=== PATIENT | male | born 1950 | race Caucasian/White ===

== ENCOUNTER → 2018-06-02 | Outpatient (CLI) | payer MEDICARE ==
[2018-06-02 07:38] LABS: Blood Urea Nitrogen 18 mg/dL (9-20)
--- NOTE | 2018-06-02 10:00 | CT ---
EXAMINATION TYPE: CT abdomen pelvis wo/w con DATE OF EXAM: 06/02/2018 COMPARISON: None HISTORY: Diverticulosis, Constipation and Bloating CT DLP: 3172.50 mGycm CONTRAST: CT scan of the abdomen and pelvis is performed with Oral Contrast and without and with IV Contrast, p atient injected with 100 ml mL of Isovue 300. FINDINGS: LUNG BASES-: Basilar dependent atelectasis. Pulmonary nodule noted measuring 4 mm left lower lobe and 3 mm right lower lobe. Consider dedicated CT of the chest for further evaluation. LIVER/GB: No calcified gallstones. No space occupying hepatic lesion. Biliary tree is of normal ca liber. There is evidence of hepatic steatosis. PANCREAS: No inflammation. No distinct mass. SPLEEN: No splenic enlargement. No lesion seen. ADRENALS: No nodule. No thickening. KIDNEYS/BLADDER: Solid mass left kidney compatible with renal cell carcinoma until proven otherwise m id to lower pole measuring 7.2 x 7.4 x 6.7 cm. Indeterminate lesion lower pole right kidney is exophy tic and measures 4.0 x 2.6 cm and demonstrates Hounsfield unit measurement of approximately 40 both b efore and after the administration of contrast. Additional left cystic lesions noted bilaterally have a simple appearance. Urinary bladder is poorly distended with wall thickening noted. No hydronephros is or nephrolithiasis. BOWEL: Normal appendix. Normal bowel caliber. No inflammation. Sigmoid diverticulosis without diver ticulitis. GENITAL ORGANS: Prostate gland calcifications noted. LYMPH NODES: No greater than 1cm abdominal or pelvic lymph nodes are appreciated. AORTA: No significant abnormality. OSSEOUS STRUCTURES: Severe multilevel degenerative disc disease. Grade 1 anterolisthesis L5 on S1. OTHER: No significant additional abnormality is seen. IMPRESSION: 1. Solid mass left kidney felt to reflect renal cell carcinoma until proven otherwise. 2. Indeterminate lesion lower pole right kidney. 3. Pulmonary nodules may reflect metastatic disease. 4. Fatty liver. Recommendation: consult. Findings were discussed with ordering physician via telephone on June 02, 2018 at approximately 10 :00 AM
== END ==
LOC: RADCTMAIN 06:55
PROVIDERS: ATTEND Family Medicine
DX: N28.89 Other specified disorders of kidney and ureter (principal); K76.0 Fatty (change of) liver, not elsewhere classified
CPT/HCPCS: 82565; 84520; 74178; 36415; Q9967

== ENCOUNTER → 2018-06-05 | Outpatient (CLI) | payer MEDICARE ==
[2018-06-05 11:25] LABS: Blood Urea Nitrogen 18 mg/dL (9-20)
--- NOTE | 2018-06-05 12:50 | CT ---
EXAMINATION TYPE: CT chest w con DATE OF EXAM: 06/05/2018 COMPARISON: CT abdomen pelvis 06/02/2018 HISTORY: Pulmonary nodule, renal mass CT DLP: 653 mGycm Automated exposure control for dose reduction was used. CONTRAST: CT scan of the chest is performed with IV Contrast, patient injected with 100 ml mL of Isovue 300. FINDINGS: LUNGS: Soft tissue nodules in the left lower lobe measures approximately 5 mm in greatest dimension o n axial image 43, bandlike area of increased attenuation is present in the left lung base reflecting atelectasis or scar, some dependent atelectatic changes are present bilaterally. Subpleural triangula r opacity measures only 3 mm in the right lower lobe on axial image 39. Emphysematous changes are pre sent within the lungs. No endobronchial lesion, pleural pericardial effusion. MEDIASTINUM: There are no greater than 1 cm hilar or mediastinal lymph nodes. No pericardial effusi on is seen. AORTA: Ascending aorta measures 4.3 cm axial image 35. Atheromatous changes are present within the a joe, proximal descending aorta measures 2.9 cm. OTHER: There are coronary artery calcifications present. Suspect small hiatal hernia. Liver shows lo w attenuation as on prior.. IMPRESSION: Indeterminate pulmonary nodules. Aortic aneurysm, follow-up recommended. Coronary artery disease. Additional findings above.
== END | disposition home or self-care (01) ==
LOC: RADCTMAIN 10:41
PROVIDERS: ATTEND Urology
DX: J43.9 Emphysema, unspecified (principal); I71.2 Thoracic aortic aneurysm, without rupture; I25.10 Atherosclerotic heart disease of native coronary artery without angina pectoris
CPT/HCPCS: 82565; 84520; 71260; 36415; Q9967

== ENCOUNTER 2018-06-09 19:59 | Emergency (ER) | payer MEDICARE ==
[2018-06-09 20:15] VITALS: RESP 18; TEMP 98.1
[2018-06-09] MEDS ORDERED: SODIUM CHLORIDE 0.9% 1,000 ML IV ONE (21:36)
--- NOTE | 2018-06-09 21:48 | ED ---
Abdominal Pain HPI - General Source: patient, RN notes reviewed Mode of arrival: ambulatory Limitations: no limitations <Serjio Gomez - Last Filed: 06/10/18 01:45> <Chelsey Yoon - Last Filed: 06/10/18 02:54> - General Chief Complaint: Abdominal Pain Stated Complaint: Abd discomfort Time Seen by Provider: 06/09/18 21:04 - History of Present Illness Initial Comments: 67-year-old male presents emergency Department chief complaint abdominal pain, bloating and shortness of breath. Patient states that he's been having these symptoms on and off for last few months states it worsened tonight. Patient states that he recently found out that he has a left renal mass consistent with renal carcinoma. Patient did have recent CT of his chest, abdomen and pelvis. He does not know the complete results of this. Patient denies any chest pain but states he feels short of breath when he lays down denies any leg swelling, leg pain. Patient states she's also had decreased urine output though he states he has not been drinking as much because he becomes bloated and has abdominal discomfort when he does. Patient denies fever, chills. Patient denies any trauma to his abdomen. Patient had prior hernia repair by Dr. henriquez. (Serjio Gomez) - Related Data Home Medications Medication Instructions Recorded Confirmed Enalapril [Vasotec] 20 mg PO DAILY 06/09/18 06/09/18 Hydrochlorothiazide [Hydrodiuril] 25 mg PO DAILY 06/09/18 06/09/18 Simvastatin 40 mg PO HS 06/09/18 06/09/18 Allergies Allergy/AdvReac Type Severity Reaction Status Date / Time No Known Allergies Allergy Verified 06/09/18 21:23 Review of Systems ROS Other: All systems not noted in ROS Statement are negative. <Serjio Gomez - Last Filed: 06/10/18 01:45> ROS Other: All systems not noted in ROS Statement are negative. <Chelsey Yoon - Last Filed: 06/10/18 02:54> ROS Statement: Those systems with pertinent positive or pertinent negative responses have been documented in the HPI. Past Medical History Past Medical History: Hyperlipidemia, Hypertension Additional Past Medical History / Comment(s): mass to left kidney History of Any Multi-Drug Resistant Organisms: None Reported Past Surgical History: Hernia Repair Additional Past Surgical History / Comment(s): TURP Past Psychological History: No Psychological Hx Reported Smoking Status: Never smoker Past Alcohol Use History: Occasional Past Drug Use History: None Reported <Serjio Gomez - Last Filed: 06/10/18 01:45> General Exam Limitations: no limitations General appearance: alert, in no apparent distress Head exam: Present: atraumatic, normocephalic, normal inspection Neck exam: Present: normal inspection. Absent: tenderness, meningismus, lymphadenopathy Respiratory exam: Present: normal lung sounds bilaterally. Absent: respiratory distress, wheezes, rales, rhonchi, stridor Cardiovascular Exam: Present: regular rate, normal rhythm, normal heart sounds. Absent: systolic murmur, diastolic murmur, rubs, gallop, clicks GI/Abdominal exam: Present: soft, normal bowel sounds. Absent: distended, tenderness, guarding, rebound, rigid Back exam: Absent: CVA tenderness (R), CVA tenderness (L) Skin exam: Present: warm, dry, intact, normal color. Absent: rash <Serjio Gomez - Last Filed: 06/10/18 01:45> Vital Signs 06/09/18 06/09/18 06/10/18 20:08 23:15 01:26 Temperature 98.1 F Pulse Rate 46 L 74 71 Respiratory 18 18 18 Rate Blood Pressure 168/81 141/85 140/77 O2 Sat by Pulse 95 96 95 Oximetry Medical Decision Making - Lab Data Result diagrams: 06/09/18 21:57 06/09/18 21:57 <Serjio Gomez - Last Filed: 06/10/18 01:45> - Lab Data Result diagrams: 06/09/18 21:57 06/09/18 21:57 <Chelsey Yoon - Last Filed: 06/10/18 02:54> - Medical Decision Making 67-year-old male present emergency apartment for abdominal pain and bloating. Patient had extensive workup including labs, x-ray, EKG and chest x-ray and CT of the chest secondary shortness of breath. Patient's symptoms have all passed at this time. Patient feels comfortable being discharged. He doesn't follow up with Dr. Bernard for colonoscopy and follow-up with urology for his renal cell carcinoma. Him is updated on results and comfortable plan of discharge. (Serjio Gomez) I personally saw and examined the patient. I reviewed and agree with the mid- level provider findings including all diagnostic interpretations and treatment plans as written (Chelsey Yoon) - Lab Data Lab Results 06/09/18 06/09/18 06/09/18 Range/Units 21:57 21:57 21:57 WBC 7.0 (3.8-10.6) k/uL RBC 4.77 (4.30-5.90) m/uL Hgb 15.1 (13.0-17.5) gm/dL Hct 43.9 (39.0-53.0) % MCV 92.1 (80.0-100.0) fL MCH 31.7 (25.0-35.0) pg MCHC 34.4 (31.0-37.0) g/dL RDW 13.3 (11.5-15.5) % Plt Count 175 (150-450) k/uL Neutrophils % 59 % Lymphocytes % 29 % Monocytes % 6 % Eosinophils % 4 % Basophils % 1 % Neutrophils # 4.1 (1.3-7.7) k/uL Lymphocytes # 2.0 (1.0-4.8) k/uL Monocytes # 0.4 (0-1.0) k/uL Eosinophils # 0.3 (0-0.7) k/uL Basophils # 0.1 (0-0.2) k/uL Sodium 143 (137-145) mmol/L Potassium 3.9 (3.5-5.1) mmol/L Chloride 107 (98-107) mmol/L Carbon Dioxide 27 (22-30) mmol/L Anion Gap 9 mmol/L BUN 22 H (9-20) mg/dL Creatinine 0.70 (0.66-1.25) mg/dL Est GFR (CKD-EPI)AfAm >90 (>60 ml/min/1.73 sqM) Est GFR (CKD-EPI)NonAf >90 (>60 ml/min/1.73 sqM) Glucose 113 H (74-99) mg/dL Calcium 9.8 (8.4-10.2) mg/dL Total Bilirubin 0.4 (0.2-1.3) mg/dL AST 31 (17-59) U/L ALT 53 (21-72) U/L Alkaline Phosphatase 51 (38-126) U/L Troponin I (0.000-0.034) ng/mL Total Protein 7.3 (6.3-8.2) g/dL Albumin 4.2 (3.5-5.0) g/dL Amylase 67 (30-110) U/L Lipase 41 (23-300) U/L Urine Color Yellow Urine Appearance Clear (Clear) Urine pH 5.0 (5.0-8.0) Ur Specific [place] 1.024 (1.001-1.035) Urine Protein Negative (Negative) Urine Glucose (UA) Trace H (Negative) Urine Ketones Negative (Negative) Urine Blood Negative (Negative) Urine Nitrite Negative (Negative) Urine Bilirubin Negative (Negative) Urine Urobilinogen <2.0 (<2.0) mg/dL Ur Leukocyte Esterase Trace H (Negative) Urine RBC 1 (0-5) /hpf Urine WBC 2 (0-5) /hpf Ur Squamous Epith Cells <1 (0-4) /hpf Uric Acid Crystals Rare H (None) /hpf Urine Mucus Rare H (None) /hpf 06/09/18 Range/Units 21:57 WBC (3.8-10.6) k/uL RBC (4.30-5.90) m/uL Hgb (13.0-17.5) gm/dL Hct (39.0-53.0) % MCV (80.0-100.0) fL MCH (25.0-35.0) pg MCHC (31.0-37.0) g/dL RDW (11.5-15.5) % Plt Count (150-450) k/uL Neutrophils % % Lymphocytes % % Monocytes % % Eosinophils % % Basophils % % Neutrophils # (1.3-7.7) k/uL Lymphocytes # (1.0-4.8) k/uL Monocytes # (0-1.0) k/uL Eosinophils # (0-0.7) k/uL Basophils # (0-0.2) k/uL Sodium (137-145) mmol/L Potassium (3.5-5.1) mmol/L Chloride (98-107) mmol/L Carbon Dioxide (22-30) mmol/L Anion Gap mmol/L BUN (9-20) mg/dL Creatinine (0.66-1.25) mg/dL Est GFR (CKD-EPI)AfAm (>60 ml/min/1.73 sqM) Est GFR (CKD-EPI)NonAf (>60 ml/min/1.73 sqM) Glucose (74-99) mg/dL Calcium (8.4-10.2) mg/dL Total Bilirubin (0.2-1.3) mg/dL AST (17-59) U/L ALT (21-72) U/L Alkaline Phosphatase (38-126) U/L Troponin I 0.021 (0.000-0.034) ng/mL Total Protein (6.3-8.2) g/dL Albumin (3.5-5.0) g/dL Amylase (30-110) U/L Lipase (23-300) U/L Urine Color Urine Appearance (Clear) Urine pH (5.0-8.0) Ur Specific [place] (1.001-1.035) Urine Protein (Negative) Urine Glucose (UA) (Negative) Urine Ketones (Negative) Urine Blood (Negative) Urine Nitrite (Negative) Urine Bilirubin (Negative) Urine Urobilinogen (<2.0) mg/dL Ur Leukocyte Esterase (Negative) Urine RBC (0-5) /hpf Urine WBC (0-5) /hpf Ur Squamous Epith Cells (0-4) /hpf Uric Acid Crystals (None) /hpf Urine Mucus (None) /hpf - EKG Data EKG Comments: EKG performed at 22:56 no sinus rhythm with a rate of 75 GA 128 QRS 104 QT/QTC 434/44 (Serjio Gomez) Disposition Is patient prescribed a controlled substance at d/c from ED?: No Time of Disposition: 01:47 <Serjio Gomez - Last Filed: 06/10/18 01:45> <Chelsey Yoon - Last Filed: 06/10/18 02:54> Clinical Impression: Abdominal pain, Abdominal bloating Disposition: HOME SELF-CARE Condition: Stable Instructions (If sedation given, give patient instructions): Abdominal Pain (ED ) Additional Instructions: Please return to the Emergency Department if symptoms worsen or any other concerns. Referrals: Ernie Clark DO [Primary Care Provider] - 1-2 days
[2018-06-09 22:09] LABS: Basophils # (A) 0.1 k/uL (0-0.2); Basophils % (A) 1 %; Eosinophils # (A) 0.3 k/uL (0-0.7); Eosinophils % (A) 4 %; HCT 43.9 % (39.0-53.0); HGB 15.1 gm/dL (13.0-17.5); Lymphocytes % (A) 29 %; MCH 31.7 pg (25.0-35.0); MCHC 34.4 g/dL (31.0-37.0); MCV 92.1 fL (80.0-100.0); Mean Platelet Volume 7.6; Monocytes # (A) 0.4 k/uL (0-1.0); Monocytes % (A) 6 %; Neutrophils # (A) 4.1 k/uL (1.3-7.7); Neutrophils % (A) 59 %; Platelet Count 175 k/uL (150-450); RBC 4.77 m/uL (4.30-5.90); RDW 13.3 % (11.5-15.5)
[2018-06-09 22:13] LABS: Appearance,Urine Clear (Clear); Bilirubin,Urine Negative (Negative); Blood,Urine Negative (Negative); Color,Urine Yellow; Glucose,Urine (UA) Trace (Negative); Ketones,Urine Negative (Negative); Leukocyte Esterase,Urine Trace (Negative); Mucus,Urine Rare /hpf; Nitrite,Urine Negative (Negative); Protein,Urine Negative (Negative); RBC,Urine 1 /hpf (0-5); Specific Gravity,Urine 1.024 (1.001-1.035); Squamous Epithelial Cell,Urine <1 /hpf (0-4); Uric Acid Crystals,Urine Rare /hpf; Urobilinogen,Urine <2.0 mg/dL (<2.0); WBC,Urine 2 /hpf (0-5)
[2018-06-09 22:19] LABS: ALT 53 U/L (21-72); AST 31 U/L (17-59); Albumin 4.2 g/dL (3.5-5.0); Alkaline Phosphatase 51 U/L (38-126); Amylase 67 U/L (30-110); Anion Gap 9 mmol/L; Blood Urea Nitrogen 22 mg/dL (9-20); Calcium 9.8 mg/dL (8.4-10.2); Carbon Dioxide 27 mmol/L (22-30); Chloride 107 mmol/L (98-107); Glucose 113 mg/dL (74-99); Lipase 41 U/L (23-300); Potassium 3.9 mmol/L (3.5-5.1); Sodium 143 mmol/L (137-145); Total Bilirubin 0.4 mg/dL (0.2-1.3); Total Protein 7.3 g/dL (6.3-8.2)
--- NOTE | 2018-06-10 00:44 | XR ---
EXAM: XR Chest, 2 Views CLINICAL HISTORY: abdominal pain TECHNIQUE: Frontal and lateral views of the chest. COMPARISON: No relevant prior studies available. FINDINGS: Lungs: Unremarkable. No consolidation. Pleural space: Unremarkable. No pneumothorax. Heart: Unremarkable. No cardiomegaly. Mediastinum: Unremarkable. Bones/joints: Unremarkable. IMPRESSION: No acute findings
--- NOTE | 2018-06-10 00:44 | XR ---
EXAM: XR Abdomen, 1 View CLINICAL HISTORY: abdominal pain TECHNIQUE: Frontal upright view of the abdomen/pelvis. COMPARISON: CT abdomen and pelvis from . FINDINGS: Gastrointestinal tract: Nonspecific bowel gas pattern. No dilation. Bones/joints: Mild degenerative changes. IMPRESSION: No acute findings.
[2018-06-10 01:26] VITALS: BP 140/77; PULSE 71
--- NOTE | 2018-06-10 01:26 | CT ---
EXAM: CT Angiography Chest With Intravenous Contrast CLINICAL HISTORY: Chest pain, r/o pe, abd discomfort, previous chest and abd ct on synapse TECHNIQUE: Axial computed tomographic angiography images of the chest with 90 mL of Isovue-370 intravenous contrast using pulmonary embolism protocol. CTDI is 13.8 mGy and DLP is 616.4 mGy-cm. This CT exam was performed using one or more of the following dose reduction techniques: automated exposure control, adjustment of the mA and/or kV according to patient size, and/or use of iterative reconstruction technique. MIP reconstructed images were created and reviewed. Coronal and sagittal reformatted images were created and reviewed. COMPARISON: CT abdomen and pelvis from 06/02/18, CT chest from 06/05/18 FINDINGS: Pulmonary arteries: Unremarkable. No pulmonary embolism. Aorta: No acute findings. No thoracic aortic aneurysm. Lungs: Small amount of bibasilar atelectasis, slightly more on the left Pleural space: Unremarkable. No significant effusion. No pneumothorax. Heart: Small amount of atherosclerotic coronary calcifications. No significant pericardial effusion. No evidence of RV dysfunction. Bones/joints: Moderate degenerative changes No acute fracture. No dislocation. Soft tissues: Unremarkable. Lymph nodes: Unremarkable. No enlarged lymph nodes. Liver: Fatty liver. Kidneys and ureters: Small right renal cysts. Partially visualized enhancing mass of lower pole of left kidney is better seen on comparison CT IMPRESSION: No pulmonary embolism. No thoracic aortic aneurysm or dissection
== END 2018-06-10 01:52 | disposition home or self-care (01) ==
LOC: EC 19:59
DX: R10.9 Unspecified abdominal pain (principal); R14.0 Abdominal distension (gaseous); N28.89 Other specified disorders of kidney and ureter; R06.02 Shortness of breath; E78.5 Hyperlipidemia, unspecified; I10 Essential (primary) hypertension; Z79.899 Other long term (current) drug therapy; Z90.79 Acquired absence of other genital organ(s); Z98.890 Other specified postprocedural states
CPT/HCPCS: 36415; 93005; 80053; 82150; 83690; 84484; 85025; 81001; 71046; 74018; 71275; 99284; 96360; Q9967

== ENCOUNTER 2018-06-24 10:34 | Day surgery (SDC) | payer MEDICARE ==
[2018-06-19 11:33] VITALS: BMI 32.5
[~2018-06-24 10:34] MED LIST: LACTATED RINGERS 1,000 ML IV SCH; LIDOCAINE 1% 20 ML VIAL (10MG/ML) FOR IV START INTRADERMA PRN
[2018-06-24 10:54] VITALS: RESP 18; TEMP 98
[2018-06-24] MEDS ORDERED: LIDOCAINE 1% 20 ML VIAL (10MG/ML) FOR IV START INTRADERMA ONE (10:57)
[2018-06-24] MEDS ORDERED: LACTATED RINGERS 1,000 ML IV ONE (10:57)
[2018-06-24] MEDS ORDERED: LIDOCAINE 1% INJ 10MG/ML (20 ML MDV) ONE (11:18)
[2018-06-24] MEDS ORDERED: KETAMINE 10 MG/ML 20 ML VIAL ONE (11:18)
[2018-06-24] MEDS ORDERED: PROPOFOL 10 MG/ML 20 ML VIAL IV ONE (11:18)
--- NOTE | 2018-06-24 11:40 | P.PCN ---
Date of Procedure: 06/24/18 Procedure(s) Performed: PREOPERATIVE DIAGNOSIS: Abdominal pain, change in bowel habits POSTOPERATIVE DIAGNOSIS: Gastritis, gastric polyps, small hiatal hernia, distal esophagitis PROCEDURE: 1. EGD with biopsy 2. Colonoscopy ANESTHESIA: MAC SURGEON: Jaiden Bernard M.D. SPECIMENS: Antrum, gastric polyp, distal esophagus ENDOSCOPIC PROCEDURE: The patient was on the endoscopy table in the left decubitus position. The Olympus gastroscope was inserted into the oropharynx and passed under direct visualization to the region of the third portion of the duodenum. From that point the scope was slowly withdrawn inspecting all surfaces carefully. There were no neoplastic inflammatory or polypoid lesions throughout the duodenum. The pylorus was widely patent. The stomach was carefully inspected. There was mild gastritis present.. A biopsy of the antrum took place to rule out H. pylori. The patient had a few scattered polyps all less than 1 cm in size. The largest one was biopsied using the cold biopsy forceps. Retroflexion revealed a small sliding hiatal hernia. The esophagus was then carefully examined. There is noted to be a single linear erosion at the GE junction. A biopsy was taken of this. This measured about 1.5 cm in length. This was non-circumferential. There were no neoplastic inflammatory or polypoid lesions throughout the visualized esophagus. The patient was kept on the endoscopy table in the left decubitus position. The Olympus colonoscope was inserted into the anus and passed under direct visualization to the base of the cecum. The appendiceal orifice was visualized. From that point the scope was slowly withdrawn inspecting all surfaces carefully. There were no neoplastic inflammatory or polypoid lesions throughout the cecum, ascending, transverse, descending, sigmoid and rectum. There was mild left-sided diverticulosis noted. Digital rectal examination was normal. The patient was taken to the recovery room in stable condition per anesthesia guidelines. RECOMMENDATIONS: Await biopsy results. Increase fiber. Follow-up colonoscopy 10 years.
[2018-06-24 12:08] VITALS: BP 157/92; PULSE 68
== END 2018-06-24 12:30 | disposition home or self-care (01) ==
LOC: ORWHC2ENDO 10:34
PROVIDERS: ATTEND Surgery
DX: K29.50 Unspecified chronic gastritis without bleeding (principal); K57.30 Diverticulosis of large intestine without perforation or abscess without bleeding; K31.7 Polyp of stomach and duodenum; K22.711 Barrett's esophagus with high grade dysplasia; K44.9 Diaphragmatic hernia without obstruction or gangrene; I10 Essential (primary) hypertension; E78.5 Hyperlipidemia, unspecified; Z79.899 Other long term (current) drug therapy; Z85.528 Personal history of other malignant neoplasm of kidney; Z90.79 Acquired absence of other genital organ(s)
CPT/HCPCS: 88305; 45378; 43239; J2001; J2704

== ENCOUNTER 2018-09-23 15:46 | Emergency (ER) | payer MEDICARE ==
[2018-09-23 16:15] VITALS: RESP 16
--- NOTE | 2018-09-23 18:33 | US ---
EXAMINATION TYPE: US venous doppler duplex LE RT DATE OF EXAM: 09/23/2018 6:12 PM COMPARISON: NONE CLINICAL HISTORY: Pain. Right leg pain. SIDE PERFORMED: Right TECHNIQUE: The lower extremity deep venous system is examined utilizing real time linear array sonog tatyana with graded compression, doppler sonography and color-flow sonography. VESSELS IMAGED: External Iliac Vein (EIV) Common Femoral Vein Deep Femoral Vein Greater Saphenous Vein * Femoral Vein Popliteal Vein Small Saphenous Vein * Proximal Calf Veins (* superficial vessels) FINDINGS: Grayscale, color doppler, spectral doppler imaging performed of the deep veins of the lower extremities. There is normal flow, compressibility, vascular waveforms. IMPRESSION: Negative for DVT, right lower extremity.
--- NOTE | 2018-09-23 19:24 | ED ---
General Adult HPI - General Chief complaint: Extremity Problem,Nontraumatic Stated complaint: RT KNEE PAIN Time Seen by Provider: 09/23/18 16:49 Source: patient, RN notes reviewed Mode of arrival: ambulatory Limitations: no limitations - History of Present Illness Initial comments: 67-year-old male with a past medical history of hyperlipidemia, hypertension presents to the emergency department for a chief when a posterior right knee pain. Patient states this has been ongoing for about one week. Patient states he had a nephrectomy 10 weeks ago and is concerned he may have a blood clot in his right leg. States the pain is mostly behind the right knee. States his calf feels somewhat swollen as well. Denies any swelling in the left leg. Denies fevers or chills. States he has been using his knees more than normal and has been bending down often for his job and often kneels on his right knee. Denies any fevers or chills. No significant pain with flexion of the right knee. Denies any difficulty ambulating on the right knee.Patient has no other complaints at this time including shortness of breath, chest pain, abdominal pain, nausea or vomiting, headache, or visual changes. - Related Data Home Medications Medication Instructions Recorded Confirmed Enalapril [Vasotec] 20 mg PO DAILY 06/09/18 06/19/18 Hydrochlorothiazide [Hydrodiuril] 25 mg PO DAILY 06/09/18 06/19/18 Simvastatin 40 mg PO HS 06/09/18 06/19/18 Previous Rx's Medication Instructions Recorded Omeprazole [PriLOSEC] 20 mg PO AC-BRKFST #90 cap 06/24/18 Allergies Allergy/AdvReac Type Severity Reaction Status Date / Time No Known Allergies Allergy Verified 09/23/18 16:15 Review of Systems ROS Statement: Those systems with pertinent positive or pertinent negative responses have been documented in the HPI. ROS Other: All systems not noted in ROS Statement are negative. Past Medical History Past Medical History: Hyperlipidemia, Hypertension, Sleep Apnea/CPAP/BIPAP Additional Past Medical History / Comment(s): mass to left kidney, stomach bloating and pain, some blood in stool, History of Any Multi-Drug Resistant Organisms: None Reported Past Surgical History: Hernia Repair Additional Past Surgical History / Comment(s): left nephrectomy, TURP Past Anesthesia/Blood Transfusion Reactions: No Reported Reaction Past Psychological History: No Psychological Hx Reported Smoking Status: Former smoker Past Alcohol Use History: None Reported Past Drug Use History: None Reported - Past Family History Brother(s) Family Medical History: Cancer Additional Family Medical History / Comment(s): bone cancer General Exam Limitations: no limitations General appearance: alert, in no apparent distress Head exam: Present: atraumatic, normocephalic, normal inspection Eye exam: Present: normal appearance, PERRL, EOMI. Absent: scleral icterus, conjunctival injection, periorbital swelling ENT exam: Present: normal exam, mucous membranes moist Neck exam: Present: normal inspection. Absent: tenderness, meningismus, lymphadenopathy Respiratory exam: Present: normal lung sounds bilaterally. Absent: respiratory distress, wheezes, rales, rhonchi, stridor Cardiovascular Exam: Present: regular rate, normal rhythm, normal heart sounds. Absent: systolic murmur, diastolic murmur, rubs, gallop, clicks Extremities exam: Present: full ROM (Range of motion of the right knee), tenderness (Tenderness noted to the posterior aspect of the right knee and calf. No tenderness noted to the anterior right knee), normal capillary refill (Capillary refill less than 2 seconds, DP pulse 2+ in the right lower extremity ), joint swelling (She does have mild edema noted to the right knee,erythema present.), calf tenderness (Mild Edema without significant erythema noted to the right calf. Negative Homans sign.), other (Sensation to the right lower extremity) Neurological exam: Present: alert, oriented X3, CN II-XII intact Psychiatric exam: Present: normal affect, normal mood Course Vital Signs 09/23/18 16:12 Temperature 98.5 F Pulse Rate 82 Respiratory 16 Rate Blood Pressure 139/86 O2 Sat by Pulse 95 Oximetry Medical Decision Making - Medical Decision Making 67-year-old male presents to the emergency department for a chief complaint of right knee pain. States his pain is mostly posterior. Did have a nephrectomy due to renal mass 10 weeks ago so is concerned for blood clot. Patient does have some edema noted to the proximal aspect of the right calf. No significant erythema. Mild edema to the right posterior knee. No significant anterior knee edema. No significant erythema or increased warmth. No evidence of infection. Patient does have full range of motion of the right knee and is ambulatory. Ultrasound was obtained of the right lower extremity, no evidence for DVT. Patient's knee was wrapped with an Percy wrap. Referral given to orthopedics. He will follow up with primary care in 1-2 days as well as orthopedics. Will return here if he has any worsening symptoms which were discussed with him. Disposition Clinical Impression: Posterior knee pain Disposition: HOME SELF-CARE Condition: Good Instructions (If sedation given, give patient instructions): Knee Pain (ED) Additional Instructions: Please wrap knee with Percy wrap while awake. Motrin and Tylenol for pain. Follow-up with orthopedics in one to 2 days. Return here if you have any worsening symptoms. Is patient prescribed a controlled substance at d/c from ED?: No Referrals: Ernie Clark DO [Primary Care Provider] - 1-2 days Isma Graham MD [STAFF PHYSICIAN] - 1-2 days Time of Disposition: 19:21
[2018-09-23 19:31] VITALS: BP 154/91; PULSE 76; TEMP 98
== END 2018-09-23 19:31 | disposition home or self-care (01) ==
LOC: EC 15:46
DX: M25.561 Pain in right knee (principal); R60.0 Localized edema; E78.5 Hyperlipidemia, unspecified; I10 Essential (primary) hypertension; G47.30 Sleep apnea, unspecified; Z87.891 Personal history of nicotine dependence; Z90.5 Acquired absence of kidney; Z98.890 Other specified postprocedural states; Z99.89 Dependence on other enabling machines and devices; Z79.899 Other long term (current) drug therapy
CPT/HCPCS: 99283

== ENCOUNTER → 2018-09-28 | Outpatient (CLI) | payer MEDICARE ==
--- NOTE | 2018-09-28 16:20 | US ---
EXAMINATION TYPE: US venous doppler duplex LE RT DATE OF EXAM: 09/28/2018 4:05 PM COMPARISON: US 2019 CLINICAL HISTORY: I80.9 Phlebitis, M71.21 Synovial cyst of popliteal. Right leg pain and swelling x 1 to 2 weeks SIDE PERFORMED: Right TECHNIQUE: The lower extremity deep venous system is examined utilizing real time linear array sonog tatyana with graded compression, doppler sonography and color-flow sonography. VESSELS IMAGED: External Iliac Vein (EIV) Common Femoral Vein Deep Femoral Vein Greater Saphenous Vein * Femoral Vein Popliteal Vein Small Saphenous Vein * Proximal Calf Veins (* superficial vessels) Right Leg: Appears negative for DVT, 3.5 x 0.9 x 2.3cm complex cystic area seen within popliteal fos sa, probable Holden's cyst IMPRESSION: 1. No diagnostic evidence of DVT as visualized. 2. Complex popliteal fossa cyst measuring 3.5 cm consider follow-up MRI.
== END ==
LOC: RADUSWWP 15:31
PROVIDERS: ATTEND Orthopaedic Surgery
DX: M71.21 Synovial cyst of popliteal space [Baker], right knee (principal)

== ENCOUNTER → 2019-10-19 | Outpatient (CLI) | payer MEDICARE ==
--- NOTE | 2019-10-20 04:46 | CT ---
EXAMINATION TYPE: CT abdomen pelvis w con DATE OF EXAM: 10/19/2019 COMPARISON: 06/02/2018 HISTORY: 68-year-old male Abdominal pain, history of kidney cancer. TECHNIQUE: Contiguous axial scanning of the abdomen and pelvis following administration of 100 ml Iso daksha 300 IV contrast. Delayed images through the kidneys and coronal/sagittal reconstructions perform ed. CT DLP: 2153.4 mGycm Automated exposure control for dose reduction was used. FINDINGS: Aortic valvular and mitral annular calcifications. Scattered coronary artery calcifications are also present. Heart upper limits of normal in size without pericardial effusion. Bands of atelectasis and scarring redemonstrated at the lung bases. 6 mm peripheral right lower lobe pulmonary nodule, axial image 7 and 5 mm on the left, axial image 10 , unchanged from 06/02/2018. No pleural effusion. Liver borderline enlarged at 17.7 cm with marked low attenuation of the hepatic parenchyma. Portal ve nous system is patent. No biliary ductal dilatation. Gallbladder is collapsed. Adrenal glands, spleen, and pancreas appear within normal limits. Status post left nephrectomy. No suspicious soft tissue or masslike opacity within the left nephrecto my bed. Right kidney shows numerous cortical hypodensities, many of which are too small for accurate CT anastasiya cterization but likely represent cysts given stability. Larger 3.5 cm mildly complicated cyst at the lower pole of the right kidney. Along the lateral upper to mid pole, there is a focal Contour lobulation. Delayed kidney images shows a possible subtle 1.7 cm hypodensity anterior, refer to delayed kidney images axial image 37. This m ay have measured slightly smaller at 1.3 cm, previously. Continued surveillance is recommended. No dilated small bowel, free fluid, or free air. No mesenteric or retroperitoneal lymphadenopathy. Normal appendix. Scattered mild stool and no pericolonic inflammatory change. Sigmoid diverticulosis. Bladder collapsed but with moderate to severe circumferential wall thickening. Prostate gland is enla rged at 5.4 cm wide with extensive calcifications redemonstrated. No abnormal fluid collection in the pelvis or pelvic lymphadenopathy. Bones: Advanced degenerative disc disease L5-S1 with grade 2 anterolisthesis here secondary to bilate ral L5 pars defects. Degenerative trace grade 1 retrolisthesis at L2-L3. No osseous destructive proce ss. IMPRESSION: 1. Status post left nephrectomy. No local recurrence or metastatic disease identified. 2. Numerous small cortical cysts within the right kidney, largest is a complicated cyst measuring 3.5 cm at the lower pole. 6-12 month surveillance follow-up is recommended for a possible subtle 1.7 cm hypodensity along the lateral upper to mid pole adjacent to a focal contour lobulation. This may have measured 1.3 cm, previously. 3. Marked circumferential bladder wall thickening could represent chronic bladder wall hypertrophy. C orrelate to exclude cystitis. 4. Hepatic steatosis. 5. A couple pulmonary nodules noted at the lung bases measuring up to 6 mm, unchanged from 06/02/2018.
== END | disposition home or self-care (01) ==
LOC: RADCTMAIN 16:14
PROVIDERS: ATTEND Family Medicine
DX: N28.1 Cyst of kidney, acquired (principal); K59.00 Constipation, unspecified; K57.92 Diverticulitis of intestine, part unspecified, without perforation or abscess without bleeding; Z90.5 Acquired absence of kidney; K76.0 Fatty (change of) liver, not elsewhere classified; N32.89 Other specified disorders of bladder
CPT/HCPCS: 82565; 84520; 74177; 36415; Q9967

== ENCOUNTER → 2020-05-16 | Outpatient (CLI) | payer MEDICARE ==
--- NOTE | 2020-05-16 17:29 | ECHOF ---
Referral Reason:I35.9 Nonrheumatic aortic valve disorder, unspecif MEASUREMENTS -------- HEIGHT: 182.9 cm WEIGHT: 106.6 kg BP: RVIDd: 3.5 cm (< 3.3) IVSd: 2.4 cm (0.6 - 1.1) LVIDd: 3.9 cm (3.9 - 5.3) LVPWd: 1.9 cm (0.6 - 1.1) IVSs: 2.4 cm LVIDs: 2.6 cm LVPWs: 2.4 cm LAESV Index (A-L): 46.47 ml/m Ao Diam: 3.5 cm (2.0 - 3.7) AV Cusp: 1.9 cm (1.5 - 2.6) LA Diam: 5.2 cm (2.7 - 3.8) MV EXCURSION: 24.306 mm (> 18.000) MV EF SLOPE: 73 mm/s (70 - 150) EPSS: 0.5 cm MV E Cheng: 0.76 m/s MV DecT: 241 ms MV A Cheng: 1.32 m/s MV E/A Ratio: 0.58 AV maxP.86 mmHg AV meanP.02 mmHg AR PHT: 653 ms RAP: 5.00 mmHg RVSP: 28.88 mmHg FINDINGS -------- Sinus rhythm. This was a technically adequate study. The left ventricular size is normal. There is severe concentric left ventricular hypertrophy. Ove rall left ventricular systolic function is normal with, an EF between 55 - 60 %. The diastolic fill ing pattern is normal for the age of the patient 13.71. The right ventricle is mildly enlarged. LA is severely dilated >40 ml/m2 The right atrial size is normal. Interatrial and interventricular septum intact. There is moderate aortic valve sclerosis. There is raxa-fg-fwusqydc aortic regurgitation. There i s moderate aortic stenosis present. Peak/mean gradient across the Aortic Valve is 52.86mmHg / 30.02 mmHg. Moderate mitral annular calcification present. Dcwi-ib-ohbspasr mitral regurgitation is present. The tricuspid valve appears structurally normal. Mild tricuspid regurgitation present. There is n o evidence of pulmonary hypertension. The right ventricular systolic pressure, as measured by Doppl er, is 28.88mmHg. The pulmonic valve was not well visualized. There is no pulmonic regurgitation present. The aortic root size is normal. IVC Not well visulized. There is no pericardial effusion. CONCLUSIONS -------- 1. There is severe concentric left ventricular hypertrophy. 2. Overall left ventricular systolic function is normal with, an EF between 55 - 60 %. 3. The right ventricle is mildly enlarged. 4. LA is severely dilated >40 ml/m2 5. There is rauy-sf-fgpaapac aortic regurgitation. 6. There is moderate aortic stenosis present. 7. Peak/mean gradient across the Aortic Valve is 52.86mmHg / 30.02mmHg. 8. Moderate mitral annular calcification present. 9. Bjpc-oq-dgldmyoi mitral regurgitation is present. 10. Mild tricuspid regurgitation present. 11. There is no pericardial effusion. GIN FEEDER: Apoorva To RDCS
== END | disposition home or self-care (01) ==
LOC: RADECHMAIN 11:58
PROVIDERS: ATTEND Family Medicine
DX: I08.3 Combined rheumatic disorders of mitral, aortic and tricuspid valves (principal)
CPT/HCPCS: 93306

== ENCOUNTER 2021-11-21 16:24 | Emergency (ER) | payer MEDICARE ==
--- NOTE | 2021-11-21 17:39 | ED ---
General Adult HPI - General Chief complaint: Upper Respiratory Infection Stated complaint: Covid+ Time Seen by Provider: 11/21/21 17:30 Source: patient, RN notes reviewed, old records reviewed Mode of arrival: ambulatory Limitations: no limitations - History of Present Illness Initial comments: 70-year-old well-appearing male presents to the emergency room with complaints of headache for the past 3-4 days. He denies any difficulty breathing or chest pain. No nausea vomiting diarrhea or fevers. States his tested positive for coronavirus last Friday. He tested negative at that time. He did test positive today by home test and is requesting monoclonal antibodies infusion. He has been vaccinated and boosted. -: days(s) (4) Location: head Severity scale (1-10): 0 Consistency: now resolved Associated Symptoms: denies other symptoms Treatments Prior to Arrival: none - Related Data Home Medications Medication Instructions Recorded Confirmed Enalapril [Vasotec] 20 mg PO DAILY 06/09/18 06/19/18 Simvastatin 40 mg PO HS 06/09/18 06/19/18 hydroCHLOROthiazide [Hydrodiuril] 25 mg PO DAILY 06/09/18 06/19/18 Previous Rx's Medication Instructions Recorded Omeprazole [PriLOSEC] 20 mg PO AC-BRKFST #90 cap 06/24/18 Allergies Allergy/AdvReac Type Severity Reaction Status Date / Time No Known Allergies Allergy Verified 11/21/21 16:45 Review of Systems ROS Statement: Those systems with pertinent positive or pertinent negative responses have been documented in the HPI. ROS Other: All systems not noted in ROS Statement are negative. Past Medical History Past Medical History: Hyperlipidemia, Hypertension, Sleep Apnea/CPAP/BIPAP Additional Past Medical History / Comment(s): mass to left kidney, stomach bloating and pain, some blood in stool, History of Any Multi-Drug Resistant Organisms: MRSA Date of last positivie culture/infection: 08/06/19 MDRO Source:: WOUND Past Surgical History: Hernia Repair Additional Past Surgical History / Comment(s): left nephrectomy, TURP Past Anesthesia/Blood Transfusion Reactions: No Reported Reaction Past Psychological History: No Psychological Hx Reported Smoking Status: Former smoker Past Alcohol Use History: None Reported Past Drug Use History: None Reported - Past Family History Brother(s) Family Medical History: Cancer Additional Family Medical History / Comment(s): bone cancer General Exam Limitations: no limitations General appearance: alert, in no apparent distress Head exam: Present: atraumatic, normocephalic Eye exam: Present: normal appearance. Absent: scleral icterus, conjunctival injection ENT exam: Present: mucous membranes moist Neck exam: Present: normal inspection. Absent: tenderness, meningismus Respiratory exam: Present: normal lung sounds bilaterally. Absent: respiratory distress, wheezes, rales, rhonchi, stridor, accessory muscle use, decreased breath sounds Cardiovascular Exam: Present: regular rate GI/Abdominal exam: Present: soft. Absent: distended, tenderness Extremities exam: Present: normal capillary refill Neurological exam: Present: alert, oriented X3, normal gait Psychiatric exam: Present: normal affect, normal mood Skin exam: Present: warm, dry, normal color. Absent: cyanosis, diaphoretic, petechiae, pallor Course Vital Signs 11/21/21 11/21/21 11/21/21 16:43 18:35 19:00 Temperature 98.7 F Pulse Rate 79 70 Respiratory 16 20 20 Rate Blood Pressure 161/79 161/94 O2 Sat by Pulse 96 Oximetry 11/21/21 11/21/21 19:30 19:54 Temperature 98 F Pulse Rate 72 80 Respiratory 18 16 Rate Blood Pressure 156/95 156/95 O2 Sat by Pulse 98 Oximetry Medical Decision Making - Medical Decision Making Patient presents with 3-4 days of headache. tested positive for coronavirus last Friday after they were exposed to a postive grandchild. He has been vaccinated and boosted. He tested positive last week but positive by home test today. He is positive for coronavirus in the emergency room. He was requesting monoclonal antibody infusion which was provided and he tolerated the infusion without any difficulty. Vital signs are stable. He was discharged home and instructed to self quarantine for 10 days from symptom onset and return to the emergency room with any new or concerning symptoms. Case discussed with Dr. Pal. - Lab Data Lab Results 11/21/21 Range/Units 16:48 Coronavirus (PCR) Detected A (Not Detectd) Disposition Clinical Impression: COVID-19 Disposition: HOME SELF-CARE Condition: Good Instructions (If sedation given, give patient instructions): COVID-19 (Coronavirus Disease 2019) (ED) Additional Instructions: Self quarantine for 10 days from symptom onset. If after 5 days you have no symptoms you can go into public wearing just a mask. Tylenol and/or Motrin as needed for any body aches or pains. Return to the emergency room with any new or concerning symptoms Is patient prescribed a controlled substance at d/c from ED?: No Referrals: Ernie Clark DO [Primary Care Provider] - 1-2 days Time of Disposition: 19:50
[2021-11-21] MEDS ORDERED: BEBTELOVIMAB (EUA) 175 MG/2 ML VIAL IV ONE (18:00)
[2021-11-21 19:39] VITALS: BP 156/95
[2021-11-21 19:56] VITALS: PULSE 80; RESP 16; TEMP 98
== END 2021-11-21 19:54 | disposition home or self-care (01) ==
LOC: EC 16:24
DX: U07.1 COVID-19 (principal); E78.5 Hyperlipidemia, unspecified; I10 Essential (primary) hypertension; Z87.891 Personal history of nicotine dependence; Z79.899 Other long term (current) drug therapy
CPT/HCPCS: 87635; 99284; Q0222

== ENCOUNTER → 2021-11-30 | Outpatient (CLI) | payer MEDICARE ==
[2021-11-30 14:50] LABS: ALT 36 U/L (4-49); AST 34 U/L (17-59); African American GFR (CKD) 69 (>60 ml/min/1.73 sqM); Albumin 3.9 g/dL (3.5-5.0); Albumin/Globulin Ratio 1.4; Alkaline Phosphatase 69 U/L (38-126); Anion Gap 5 mmol/L; Blood Urea Nitrogen 26 mg/dL (9-20); Carbon Dioxide 25 mmol/L (22-30); Chloride 109 mmol/L (98-107); Globulin 2.7 g/dL; Glucose 207 mg/dL (74-99); Non-African American GFR(CKD) 60 (>60 ml/min/1.73 sqM); Potassium 4.1 mmol/L (3.5-5.1); Sodium 139 mmol/L (137-145); Total Bilirubin 0.5 mg/dL (0.2-1.3); Total Protein 6.6 g/dL (6.3-8.2)
[2021-11-30 19:12] LABS: Chol/HDL Ratio 5.97 Ratio
--- NOTE | 2021-11-30 23:03 | CT ---
EXAMINATION TYPE: CT ChestAbdPelvis w con CT DLP: 2621.30 mGycm, Automated exposure control for dose reduction was used. DATE OF EXAM: 11/30/2021 4:58 PM COMPARISON: None. CLINICAL INDICATION:Male, 70 years old with history of C61 PROSTATE CA, Obs for mets. hx prostate and kidney ca. L kidney removal x4 years ago Technique: Multiple axial images of the chest, abdomen, and pelvis were obtained. Two-dimensional cor onal and sagittal reconstructions were obtained. Contrast used:80 mL of Isovue 300 with IV Contrast, Oral contrast used: with Oral Contrast Findings: CHEST: LUNGS/ PLEURA: No focal consolidation, pneumothorax or pleural effusion. There is moderate centrilobu lar emphysema changes present. Elevated left diaphragm. Scattered streaky atelectasis/scarring seen m ost pronounced in the lower lobes, left greater than right. Stable pulmonary nodule in the left lower lobe 5 mm prior right lower lobe pulmonary nodule is not definitively visualized may be due to secon pradeep to respiratory motion. AIRWAY: Patent and unremarkable. HEART: Heart is mildly enlarged for size. There is aortic valve leaflet, mitral valve annular and cor onary artery calcifications. The right atrium is relatively small with left ventricular hypertrophy c hanges. MEDIASTINUM: No gross evidence of adenopathy. VASCULATURE: No aortic aneurysm. MUSCULOSKELETAL: No acute osseous abnormalities. SOFT TISSUES/LYMPH NODES: Unremarkable. LOWER NECK: No significant findings. ABDOMEN: ABDOMEN LIVER: Diffusely hypoattenuating parenchyma. GALLBLADDER AND BILE DUCTS: Decompressed and grossly unremarkable. PANCREAS: There is marked masslike appearance of the uncinate process measuring 3.2 x 2.2 cm best kenia reciated on series 4 image 78. This is new from the 2019 examination and is more conspicuous compared to 10/19/2019. No main pancreatic duct dilatation definitively visualized. SPLEEN: Unremarkable. ADRENAL GLANDS: Unremarkable. KIDNEYS AND URETERS: The left kidney is surgically absent. The right kidney demonstrates multiple sim ple appearing renal cysts also at least one hyperdense renal cyst measuring 13 mm and 51 Hounsfield u nits. Additional hyperdense renal cysts in the right upper pole measuring 53 Hounsfield units and 2.5 cm. There is no evidence of renal calculi or hydronephrosis. PELVIS BLADDER: Unremarkable REPRODUCTIVE: Prostate is enlarged in size measuring 6.0 cm in transverse dimension. Scattered prosta tic calculi present. ABDOMEN & PELVIS STOMACH AND BOWEL: Small hiatal hernia, duodenum is unremarkable. Scattered diverticula are noted thr oughout the colon. No evidence of bowel obstruction. PERITONEUM: No evidence of pneumoperitoneum or free fluid. VASCULATURE: No evidence of aortic aneurysm. Scattered atherosclerosis of the arterial vasculature. MUSCULOSKELETAL: No acute osseous abnormalities, grade 2 anterolisthesis of L5 5 on S1 with lateral s pondylolysis. LYMPH NODES: No gross evidence for lymphadenopathy. SOFT TISSUE/ABDOMINAL WALL: Unremarkable IMPRESSION: 1. Masslike appearance of the uncinate process of the pancreas. Appears slightly more conspicuous th an 10/19/2019 study and not definitively visualized on 06/02/2018 study. A dedicated MRI with IV contras t pancreatic mass protocol is recommended. Primary versus metastatic disease remain in the differenti al given history of renal cancer. 2. Right hyperdense indeterminate renal cysts which may be mildly increased in size from 2019. 3. Left nephrectomy changes. 4. Prostatomegaly without evidence for cyst suspicious osseous metastatic disease.
== END | disposition home or self-care (01) ==
LOC: RADCTMAIN 14:03
PROVIDERS: ATTEND Urology
DX: C61 Malignant neoplasm of prostate (principal); I10 Essential (primary) hypertension; E78.5 Hyperlipidemia, unspecified
CPT/HCPCS: 84153; 80061; 80053; 83721; 71260; 74177; 36415; Q9967

== ENCOUNTER → 2021-12-21 | Outpatient (CLI) | payer MEDICARE ==
--- NOTE | 2021-12-22 04:33 | MR ---
EXAMINATION TYPE: MR pancreas wo/w con DATE OF EXAM: 12/21/2021 COMPARISON: CT scan 11/30/2021 HISTORY: MASS OF PANCREAS, HX KIDNEY CA CONTRAST: Standard multiplanar, multisequence MRI departmental protocol images were obtained without contrast a nd with 11 mL intravenous Gadavist gadolinium contrast. Liver has normal size and contour. Bile ducts are not dilated. Gallbladder appears normal. Lung bases show no sign of pleural effusion. Spleen is intact. Stomach is intact. Pancreas duct appears normal. There is slight prominence of the uncinate process of the pancreas. The re is on the T1 images were area of decreased signal that does not enhance in the anterior aspect of the uncinate process. This has slight increased signal on the T2 images and consistent with some flui d. This area measures overall almost 2 cm. The left kidney is absent. The right kidney shows several cortical cysts. No hydronephrosis. No retro peritoneal adenopathy. There is no ascites. No sign of a bowel obstruction. There is normal enhanceme nt of the portal venous system IMPRESSION: Exam shows some bulkiness of the uncinate process with nonenhancing anterior focus that could be a pa ncreatic pseudocyst cyst formation and I think is reasonable likelihood of being benign. This could b e followed up conservatively with a repeat exam.
== END | disposition home or self-care (01) ==
LOC: RADMRIMAIN 06:59
PROVIDERS: ATTEND Urology
DX: K86.89 Other specified diseases of pancreas (principal)
CPT/HCPCS: 74183; A9585

== ENCOUNTER 2022-05-13 16:24 | Emergency (ER) | payer MEDICARE ==
[2022-05-13 16:48] VITALS: TEMP 98.6
[2022-05-13 18:34] LABS: Basophils % (A) 0 %; Eosinophils # (A) 0.2 k/uL (0-0.7); Eosinophils % (A) 2 %; HCT 44.2 % (39.0-53.0); HGB 15.1 gm/dL (13.0-17.5); Lymphocytes # (A) 0.9 k/uL (1.0-4.8); Lymphocytes % (A) 11 %; MCH 30.6 pg (25.0-35.0); MCHC 34.2 g/dL (31.0-37.0); MCV 89.2 fL (80.0-100.0); Mean Platelet Volume 8.3; Monocytes # (A) 0.5 k/uL (0-1.0); Monocytes % (A) 5 %; Neutrophils # (A) 6.9 k/uL (1.3-7.7); Neutrophils % (A) 81 %; Platelet Count 150 k/uL (150-450); RBC 4.95 m/uL (4.30-5.90); RDW 13.8 % (11.5-15.5); WBC 8.6 k/uL (3.8-10.6)
--- NOTE | 2022-05-13 18:40 | XR ---
EXAMINATION TYPE: XR KUB DATE OF EXAM: 05/13/2022 COMPARISON: 06/09/2018 HISTORY: Abdominal pain TECHNIQUE: 2 views FINDINGS: There is no sign of intestinal obstruction or pneumoperitoneum. Fecal pattern is normal. No evidence of a mass. There are no pathologic calcifications over the kidneys. IMPRESSION: Nonacute abdomen.
[2022-05-13 19:14] LABS: ALT 489 U/L (4-49); AST 174 U/L (17-59); African American GFR (CKD) >90 (>60 ml/min/1.73 sqM); Albumin 3.9 g/dL (3.5-5.0); Alkaline Phosphatase 170 U/L (38-126); Amylase 166 U/L (30-110); Anion Gap 11 mmol/L; Blood Urea Nitrogen 22 mg/dL (9-20); Calcium 8.9 mg/dL (8.4-10.2); Carbon Dioxide 21 mmol/L (22-30); Chloride 109 mmol/L (98-107); Glucose 265 mg/dL (74-99); Lipase 1605 U/L (23-300); Non-African American GFR(CKD) 83 (>60 ml/min/1.73 sqM); Potassium 3.9 mmol/L (3.5-5.1); Sodium 141 mmol/L (137-145); Total Bilirubin 4.7 mg/dL (0.2-1.3); Total Protein 6.9 g/dL (6.3-8.2)
--- NOTE | 2022-05-13 19:31 | ED ---
Abdominal Pain HPI - General Chief Complaint: Abdominal Pain Stated Complaint: abd pain,nausea Time Seen by Provider: 05/13/22 19:17 Source: patient, RN notes reviewed Mode of arrival: ambulatory Limitations: no limitations - History of Present Illness Initial Comments: Patient is a 71-year-old male presenting to the emergency room with c omplaints of abdominal bloating, abdominal pain, nausea without vomiting, changes in stool color and orange colored urine all ongoing for approximately 1 week. He reports that he is a newly diagnosed diabetic and not his blood sugar readings at home thus far have been in the low 100s. He also reports a recent biopsy of a pancreas lesion which came back but not as a benign cyst. He reports that he recently had a full physical at his primary care provider's office prior to these symptoms occurring and laboratory studies at that time were "fine". He denies any chest pain, shortness of breath, vomiting, diarrhea, bloody stools, unintentional weight loss, fevers or chills. He denies any previous liver issues or pancreatic issues with the exception of his recently biopsied cyst. In addition to his newly diagnosed diabetic history is a past medical history significant for hypertension, hyperlipidemia, sleep apnea, and left renal mass with left nephrectomy. - Related Data Home Medications Medication Instructions Recorded Confirmed Simvastatin 40 mg PO HS 06/09/18 05/13/22 Empagliflozin [Jardiance] 10 mg PO DAILY 05/13/22 05/13/22 Furosemide [Lasix] 20 mg PO DAILY 05/13/22 05/13/22 Multivitamins, Thera [Multivitamin 1 tab PO DAILY 05/13/22 05/13/22 (formulary)] amLODIPine BESYLATE/BENAZEPRIL 1 cap PO DAILY 05/13/22 05/13/22 [amLODIPine BESYLATE/BENAZEPRIL 10-40 mg] Previous Rx's Medication Instructions Recorded Omeprazole [PriLOSEC] 20 mg PO -BRKFST #90 cap 06/24/18 Allergies Allergy/AdvReac Type Severity Reaction Status Date / Time No Known Allergies Allergy Verified 05/13/22 21:57 Review of Systems ROS Statement: Those systems with pertinent positive or pertinent negative responses have been documented in the HPI. ROS Other: All systems not noted in ROS Statement are negative. Past Medical History Past Medical History: Diabetes Mellitus, Hyperlipidemia, Hypertension, Sleep Apnea/CPAP/BIPAP Additional Past Medical History / Comment(s): mass to left kidney, stomach bloating and pain, some blood in stool, History of Any Multi-Drug Resistant Organisms: MRSA Date of last positivie culture/infection: 08/06/19 MDRO Source:: WOUND Past Surgical History: Hernia Repair Additional Past Surgical History / Comment(s): left nephrectomy, TURP Past Anesthesia/Blood Transfusion Reactions: No Reported Reaction Past Psychological History: No Psychological Hx Reported Smoking Status: Former smoker Past Alcohol Use History: Rare Past Drug Use History: None Reported - Past Family History Brother(s) Family Medical History: Cancer Additional Family Medical History / Comment(s): bone cancer General Exam - General Exam Comments Initial Comments: GENERAL: No acute distress, well developed, well nourished. HEENT: Normocephalic, atraumatic. Pupils equal, round, reactive to light. Moist mucous membranes. LUNGS: No respiratory distress. Clear to auscultation, no adventitious sounds, no use of accessory muscles. HEART: Regular rate and rhythm without murmur, rub, or gallop. ABDOMEN: Normal bowel sounds. Distended but soft, tenderness bilateral upper quadrants. BACK: Normal inspection. EXTREMITIES: No edema. No tenderness. Moves all extremities. NEUROLOGIC: Alert & oriented x 3. CN II-XII grossly intact. PSYCHIATRIC: Normal affect and behavior. DERMATOLOGIC: Skin intact, without rashes or lesions noted. Limitations: no limitations Course Vital Signs 05/13/22 16:44 Temperature 98.6 F Pulse Rate 92 Respiratory 18 Rate Blood Pressure 154/83 O2 Sat by Pulse 96 Oximetry Medical Decision Making - Medical Decision Making Was pt. sent in by a medical professional or institution (, PA, NURSING STAFF DEVELOPMENT COORDINATOR, urgent care, hospital, or care home...) When possible be specific @ -No Did you speak to anyone other than the patient for history (EMS, parent, family, police, friend...)? What history was obtained from this source @ - Did you review nursing and triage notes (agree or disagree)? Why? @ -I reviewed and agree with nursing and triage notes Were old charts reviewed (outside hosp., previous admission, EMS record, old EKG, old radiological studies, urgent care reports/EKG's, care home records)? Report findings @ -No old charts were reviewed Differential Diagnosis (chest pain, altered mental status, abdominal pain women, abdominal pain men, vaginal bleeding, weakness, fever, dyspnea, syncope, headache, dizziness, GI bleed, back pain, seizure, CVA, palpatations, mental health)? @ -Differential Abdominal Pain Men: Appendicitis, cholecystitis, diverticulosis, ischemic bowel, pancreatitis, hepatitis, UTI, gastroenteritis, AAA, incarcerated hernia, bowel obstruction, c onstipation, inflammatory bowel, hepatitis, peptic ulcer disease, splenic infarction, perforated viscus, testicular torsion, this is not meant to be an all-inclusive list EKG interpreted by me (3pts min.). @ -As above X-rays interpreted by me (1pt min.). @ -KUB image without any acute pathology. No free air. CT interpreted by me (1pt min.). @ -CT of the abdomen and pelvis with contrast demonstrates gallbladder enlargement along with enlargement to the common bile duct. Edema of around the pancreas is noted consistent with pancreatitis as well. Radiologist report reviewed. Follow-up is recommended. U/S interpreted by me (1pt. min.). @ -None done What testing was considered but not performed or refused? (CT, X-rays, U/S, l abs)? Why? @ -None What meds were considered but not given or refused? Why? @ -Analgesics and antiemetics offered and declined. Did you discuss the management of the patient with other professionals (professionals i.e. , PA, NURSING STAFF DEVELOPMENT COORDINATOR, lab, RT, psych nurse, health and social care teacher, permit technician, teacher, sustainability officer, immigration case worker)? Give summary @ - Boob with transfer team at [facility] whom spoke with your provider and GI team at [place], both of which are excepting the patient for transfer. Excepting provider at [facility] emergency room is Dr. Bazzi. Was smoking cessation discussed for >3mins.? @ -No Was critical care preformed (if so, how long)? @ -No Were there social determinants of health that impacted care today? How? (Homelessness, low income, unemployed, alcoholism, drug addiction, transport ation, low edu. Level, literacy, decrease access to med. care, [facility], rehab)? @ -No Was there de-escalation of care discussed even if they declined (Discuss DNR or withdrawal of care, Hospice)? DNR status @ -No What co-morbidities impacted this encounter? (DM, HTN, Smoking, COPD, CAD, Cancer, CVA, ARF, Chemo, Hep., AIDS, mental health diagnosis, sleep apnea, morbid obesity)? @ -Newly diagnosed diabetes and pancreatic cyst Was patient admitted / discharged? Hospital course, mention meds given and route, prescriptions, significant lab abnormalities, going to OR and other pertinent info. @ -71-year-old male presenting to the emergency room with complaints of abdominal pain bloating nausea and stool change ongoing for approximately 1 week along with orange colored urine. Laboratory studies ordered by triage nurse CBC, CMP amylase and lipase reveal elevated amylase and elevated lipase amylase 166, lipase 1605, elevated alk phos, ALT, AST, and bilirubin bilirubin 4.7, AST 174, a LT 489, alkaline phosphatase 170 BUN slightly elevated at 22, normal creatinine, bicarb low at 21 chloride elevated at 109. CBC unremarkable. KUB ordered by triage nurse. No abnormalities on KUB. Discussed abnormality labs with patient and spouse at length. Recommend proceeding with CT of the abdomen inserting IV line for IV hydration and further plan pending CT results. Patient agreeable for computed tomography scan. Will order. Computed tomography scan demonstrates both pancreatitis and dilated gallbladder consistent with gallbladder disease. No distinct stones noted. Concern for possible distal common bile duct obstruction. Follow-up is recommended by radiologist. Findings discussed with patient and his spouse. Advised recommend transferring to alternative facility for GI services further workup and treatment. Patient is agreeable for transfer. Will start on IV fluids and keep nothing by mouth. Denies any analgesic or antiemetic needs at this time. Patient tolerated IV fluids well. Currently resting comfortably. Attempted to transfer to [facility] after 40 minutes of no response from transfer team decision made to attempt other facilities. Spoke with transfer team at [facility]. He has been accepted for transfer at that facility. Will transfer patient to [facility] ER, ER to ER transfer in stable condition excepting provider Dr. Bazzi. Undiagnosed new problem with uncertain prognosis? @ -gallbladder dilatation with possible distal common bile duct obstruction Drug Therapy requiring intensive monitoring for toxicity (Heparin, Nitro, Insulin, Cardizem)? @ -No Were any procedures done? @ -No Diagnosis/symptom? @ -Cholecystitis Acute, or Chronic, or Acute on Chronic? @ -acute Uncomplicated (without systemic symptoms) or Complicated (systemic symptoms)? @ -complicated Side effects of treatment? @ -No Exacerbation, Progression, or Severe Exacerbation? @ -No Poses a threat to life or bodily function? How? (Chest pain, [place], [place], pneumonia, PE, COPD, DKA, ARF, appy, cholecystitis, CVA, Diverticulitis, Homicidal, Suicidal, threat to staff... and all critical care pts) @ -yes Diagnosis/symptom? @ -Pancreatitis Acute, or Chronic, or Acute on Chronic? @ -Acute Uncomplicated (without systemic symptoms) or Complicated (systemic symptoms)? @ -Complicated Side effects of treatment? @ -none Exacerbation, Progression, or Severe Exacerbation] @ -no Poses a threat to life or bodily function? @ -Yes Case discussed with Dr. Najera. - Lab Data Result diagrams: 05/13/22 18:18 05/13/22 18:18 Lab Results 05/13/22 05/13/22 Range/Units 18:18 18:18 WBC 8.6 (3.8-10.6) k/uL RBC 4.95 (4.30-5.90) m/uL Hgb 15.1 (13.0-17.5) gm/dL Hct 44.2 (39.0-53.0) % MCV 89.2 (80.0-100.0) fL MCH 30.6 (25.0-35.0) pg MCHC 34.2 (31.0-37.0) g/dL RDW 13.8 (11.5-15.5) % Plt Count 150 (150-450) k/uL MPV 8.3 Neutrophils % 81 % Lymphocytes % 11 % Monocytes % 5 % Eosinophils % 2 % Basophils % 0 % Neutrophils # 6.9 (1.3-7.7) k/uL Lymphocytes # 0.9 L (1.0-4.8) k/uL Monocytes # 0.5 (0-1.0) k/uL Eosinophils # 0.2 (0-0.7) k/uL Basophils # 0.0 (0-0.2) k/uL Sodium 141 (137-145) mmol/L Potassium 3.9 (3.5-5.1) mmol/L Chloride 109 H (98-107) mmol/L Carbon Dioxide 21 L (22-30) mmol/L Anion Gap 11 mmol/L BUN 22 H (9-20) mg/dL Creatinine 0.94 (0.66-1.25) mg/dL Est GFR (CKD-EPI)AfAm >90 (>60 ml/min/1.73 sqM) Est GFR (CKD-EPI)NonAf 83 (>60 ml/min/1.73 sqM) Glucose 265 H (74-99) mg/dL Calcium 8.9 (8.4-10.2) mg/dL Total Bilirubin 4.7 H (0.2-1.3) mg/dL AST 174 H (17-59) U/L ALT 489 H (4-49) U/L Alkaline Phosphatase 170 H (38-126) U/L Total Protein 6.9 (6.3-8.2) g/dL Albumin 3.9 (3.5-5.0) g/dL Amylase 166 H (30-110) U/L Lipase 1605 H (23-300) U/L - Radiology Data Radiology results: report reviewed, image reviewed Disposition Clinical Impression: Pancreatitis, Acute cholecystitis without calculus Disposition: OTHER INSTITUTION NOT DEFINED Condition: Stable Is patient prescribed a controlled substance at d/c from ED?: No Referrals: Ernie Clark DO [Primary Care Provider] - 1-2 days Time of Disposition: 22:33 - Out of Hospital Transfer - Req. Specs Out of Hospital Transfer - Requested Specifics: Other Emergency Center ([facility] ER to ER accepting physician Dr. Bazzi)
--- NOTE | 2022-05-13 20:34 | CT ---
EXAMINATION TYPE: CT abdomen pelvis w con DATE OF EXAM: 05/13/2022 COMPARISON: 10/19/2019 HISTORY: Generalized abdominal pain and nausea. CT DLP: 1577.2 mGycm Automated exposure control for dose reduction was used. CONTRAST: Performed with IV Contrast, patient injected with 100ml mL of Isovue 300. Images obtained from the diaphragm to the floor of the pelvis with IV contrast. Lung bases are clear. No pleural effusion. Heart size is normal. No pericardial effusion. Liver is intact. There is distended gallbladder that measures 4.8 x 12 cm. The spleen is intact. Stom ach is intact. There is some mild fat stranding around the body and head of the pancreas. There is pa tchy hypodensity in the pancreatic head. Common bile duct is large and measures 11 mm. There is no adrenal mass. Left kidney appears absent. The right kidney shows no hydronephrosis. There are right-sided renal cortical cysts that measure up to 5 cm. Bladder distends smoothly. There is pr ostate calcification. No inguinal hernia. No free fluid in the pelvis. No pelvic mass. No retroperito nahun adenopathy. There is no mesenteric edema. No ascites or free air. No sign of a bowel obstruction. There are a few sigmoid diverticula. No diverticulitis. There is a first-degree L5-S1 spondylolisthesis. No lumbar compression fracture. There is bilateral L 5 spondylolysis. The bony pelvis is intact. The hip joints are intact. IMPRESSION: Fat stranding and edema involving the body and head of the pancreas likely is acute pancreatitis. Hyman creatic tumor not excluded. Follow-up is recommended. Abnormality appears new compared to the old exa m. Dilated gallbladder appears new compared to the old exam. Large common bile duct. Distal common bile duct obstruction is possible. Follow-up recommended.
[2022-05-13] MEDS ORDERED: SODIUM CHLORIDE 0.9% 1,000 ML IV STA (21:20)
[2022-05-13 22:35] VITALS: BP 166/98; PULSE 84; RESP 16
== END 2022-05-13 23:01 | disposition other institution (70) ==
LOC: EC 16:24
DX: K85.90 Acute pancreatitis without necrosis or infection, unspecified (principal); K81.0 Acute cholecystitis; E11.9 Type 2 diabetes mellitus without complications; E78.5 Hyperlipidemia, unspecified; I10 Essential (primary) hypertension; Z87.891 Personal history of nicotine dependence; Z79.899 Other long term (current) drug therapy
CPT/HCPCS: 36415; 80053; 82150; 83690; 85025; 74018; 74177; 99285; 96360; Q9967

== ENCOUNTER → 2023-01-17 | Outpatient (CLI) | payer MEDICARE ==
--- NOTE | 2023-01-17 11:12 | US ---
EXAMINATION TYPE: US venous doppler duplex LE BI DATE OF EXAM: 01/17/2023 11:04 AM COMPARISON: Prev Right leg only CLINICAL INDICATION: Male, 72 years old with history of M79.661 M79.662 PAIN IN RT AND LEFT LEGS; Hermann ateral leg swelling, pt currently on chemo for pancreatic cancer SIDE PERFORMED: Bilateral TECHNIQUE: The lower extremity deep venous system is examined utilizing real time linear array sonog tatyana with graded compression, doppler sonography and color-flow sonography. VESSELS IMAGED: Common Femoral Vein Deep Femoral Vein Greater Saphenous Vein * Femoral Vein Popliteal Vein Small Saphenous Vein * Proximal Calf Veins (* superficial vessels) Right Leg: Negative for DVT Left Leg: Negative for DVT Results called to Nunu at 's office at time of exam IMPRESSION: No evidence of deep venous thrombosis.
== END | disposition home or self-care (01) ==
LOC: RADUSWWP 10:33
PROVIDERS: ATTEND Internal Medicine Hematology & Oncology
DX: C25.9 Malignant neoplasm of pancreas, unspecified (principal); M79.661 Pain in right lower leg; M79.662 Pain in left lower leg; R22.41 Localized swelling, mass and lump, right lower limb; R22.42 Localized swelling, mass and lump, left lower limb
CPT/HCPCS: 93970

== ENCOUNTER 2023-09-04 13:19 | Inpatient (IN) | payer MEDICARE ==
--- NOTE | 2023-09-04 15:56 | XR ---
EXAMINATION TYPE: XR chest 2V DATE OF EXAM: 09/04/2023 COMPARISON: 06/09/2018 HISTORY: 72-year-old male with chest pain, fluid retention, chemotherapy patient TECHNIQUE: PA and lateral views FINDINGS: Heart and lungs are normal in size. Increased interstitial densities. Bandlike opacity, likely atelec tasis at the left base. No pleural effusion. IMPRESSION: Mild increase in interstitial density could reflect early pulmonary vascular congestion. No kajal pul monary edema. Large bandlike areas of probable atelectasis at the left base.
[2023-09-04 16:18] LABS: ALT 18 U/L (4-49); AST 28 U/L (17-59); African American GFR (CKD) 44 (>60 ml/min/1.73 sqM); Albumin 2.8 g/dL (3.5-5.0); Alkaline Phosphatase 154 U/L (38-126); Anion Gap 5 mmol/L; Basophils % (A) 1 %; Blood Urea Nitrogen 31 mg/dL (9-20); Calcium 8.3 mg/dL (8.4-10.2); Carbon Dioxide 21 mmol/L (22-30); Chloride 115 mmol/L (98-107); Eosinophils # (A) 0.3 k/uL (0-0.7); Eosinophils % (A) 6 %; Glucose 267 mg/dL (74-99); HCT 35.8 % (39.0-53.0); HGB 10.9 gm/dL (13.0-17.5); Hypochromasia Slight; Lymphocytes # (A) 0.7 k/uL (1.0-4.8); Lymphocytes % (A) 14 %; MCH 29.6 pg (25.0-35.0); MCHC 30.4 g/dL (31.0-37.0); MCV 97.4 fL (80.0-100.0); Magnesium 1.9 mg/dL (1.6-2.3); Mean Platelet Volume 10.3; Monocytes # (A) 0.3 k/uL (0-1.0); Monocytes % (A) 6 %; Neutrophils # (A) 3.7 k/uL (1.3-7.7); Neutrophils % (A) 72 %; Non-African American GFR(CKD) 38 (>60 ml/min/1.73 sqM); Platelet Count 129 k/uL (150-450); RBC 3.68 m/uL (4.30-5.90); RDW 14.3 % (11.5-15.5); Sodium 141 mmol/L (137-145); Total Bilirubin 0.4 mg/dL (0.2-1.3); Total Protein 6.2 g/dL (6.3-8.2); WBC 5.2 k/uL (3.8-10.6)
[2023-09-04 16:22] LABS: Partial Thromboplastin Time 23.2 sec (22.0-30.0); Prothrombin Time 10.6 sec (10.0-12.5)
[2023-09-04 16:26] LABS: NT-Pro-B-Type Natriuretic Pept 13800 pg/mL
--- NOTE | 2023-09-04 16:29 | ED ---
Extremity Problem HPI - General Chief complaint: Extremity Problem,Nontraumatic Stated complaint: fluid retention Time Seen by Provider: 09/04/23 13:40 Source: patient Mode of arrival: ambulatory Limitations: no limitations - History of Present Illness Initial comments: 72-year-old male with past medical history of pancreatic cancer status post biliary duct on therapy who presents emergency department reporting lower extremity swelling and abdominal swelling. Patient states that he has not had any chemotherapy in 5 weeks because it was making him too weak. As of the past week he has been retaining a significant amount of edema in his legs and abdom en. States that he is short of breath with ambulation due to the upward pressure from his belly. He denies any fevers. No history of ascites. Patient does have a single kidney and takes lasix 40 mg twice daily. Denies any missed doses recently. He denies any chest pain. No history of congestive heart failure. No other alleviating, precipitating or modifying factors - Related Data Home Medications Medication Instructions Recorded Confirmed amLODIPine BESYLATE/BENAZEPRIL 1 cap PO DAILY 05/13/22 09/04/23 [amLODIPine BESYLATE/BENAZEPRIL 10-40 mg] ALPRAZolam [Xanax] 0.25 mg PO BID PRN 09/04/23 09/04/23 Furosemide [Lasix] 40 mg PO BID@0900,1400 09/04/23 09/04/23 Insulin NPH Hum/Reg Insulin Hm 0 - 10 units SQ BID PRN 09/04/23 09/04/23 [NovoLIN 70-30 Flexpen] Lipase/Protease/Amylase [Isaiah Cuevas 48,000 unit PO ACHS 09/04/23 09/04/23 24,000 Unit Capsule] Ondansetron Odt [Zofran ODT] 4 mg PO Q8HR PRN 09/04/23 09/04/23 Potassium Chloride ER [K-Dur 10] 10 meq PO DAILY 09/04/23 09/04/23 Previous Rx's Medication Instructions Recorded Omeprazole [PriLOSEC] 20 mg PO AC-BRKFST #90 cap 06/24/18 lisinopriL [Zestril] 40 mg PO DAILY 15 Days #30 tab 09/05/23 Allergies Allergy/AdvReac Type Severity Reaction Status Date / Time No Known Allergies Allergy Verified 09/04/23 17:15 Review of Systems ROS Statement: Those systems with pertinent positive or pertinent negative responses have been documented in the HPI. ROS Other: All systems not noted in ROS Statement are negative. Past Medical History Past Medical History: Cancer, Diabetes Mellitus, Hyperlipidemia, Hypertension, Sleep Apnea/CPAP/BIPAP Additional Past Medical History / Comment(s): mass to left kidney, stomach bloating and pain, some blood in stool, History of Any Multi-Drug Resistant Organisms: MRSA Date of last positivie culture/infection: 08/06/19 MDRO Source:: WOUND Past Surgical History: Hernia Repair Additional Past Surgical History / Comment(s): left nephrectomy, TURP Past Anesthesia/Blood Transfusion Reactions: No Reported Reaction Past Psychological History: No Psychological Hx Reported Smoking Status: Former smoker Past Alcohol Use History: Rare Past Drug Use History: None Reported - Past Family History Brother(s) Family Medical History: Cancer Additional Family Medical History / Comment(s): bone cancer General Exam Limitations: no limitations General appearance: alert, in no apparent distress Head exam: Present: atraumatic, normocephalic, normal inspection Eye exam: Present: normal appearance, PERRL, EOMI. Absent: scleral icterus, conjunctival injection, periorbital swelling ENT exam: Present: normal exam, mucous membranes moist Neck exam: Present: normal inspection. Absent: tenderness, meningismus, lymphadenopathy Respiratory exam: Present: normal lung sounds bilaterally. Absent: respiratory distress, wheezes, rales, rhonchi, stridor Cardiovascular Exam: Present: regular rate, normal rhythm, normal heart sounds. Absent: systolic murmur, diastolic murmur, rubs, gallop, clicks GI/Abdominal exam: Present: distended, normal bowel sounds. Absent: tenderness, guarding, rebound, rigid Extremities exam: Present: full ROM, normal capillary refill, pedal edema. Absent: tenderness, joint swelling, calf tenderness Back exam: Present: normal inspection Neurological exam: Present: alert, oriented X3, CN II-XII intact Psychiatric exam: Present: normal affect, normal mood Skin exam: Present: warm, dry, intact, normal color. Absent: rash Course Vital Signs 09/04/23 09/04/23 09/04/23 13:36 16:25 16:34 Temperature 98.1 F 98.0 F Pulse Rate 84 78 Respiratory 15 20 17 Rate Blood Pressure 154/78 149/89 O2 Sat by Pulse 98 95 Oximetry 09/04/23 09/04/23 09/05/23 18:02 20:31 00:42 Temperature 97.9 F 97.7 F Pulse Rate 87 82 74 Respiratory 18 18 19 Rate Blood Pressure 162/84 135/89 143/87 O2 Sat by Pulse 96 98 94 L Oximetry 09/05/23 09/05/23 09/05/23 04:31 06:44 08:17 Temperature 98.1 F Pulse Rate 71 87 84 Respiratory 18 18 17 Rate Blood Pressure 128/66 162/90 167/89 O2 Sat by Pulse 95 98 96 Oximetry 09/05/23 10:20 Temperature Pulse Rate 92 Respiratory 20 Rate Blood Pressure 164/91 O2 Sat by Pulse 96 Oximetry Medical Decision Making - Medical Decision Making Was pt. sent in by a medical professional or institution (, PA, [employer], urgent care, hospital, or half-way...) When possible be specific @ -No Did you speak to anyone other than the patient for history (EMS, parent, family, police, friend...)? What history was obtained from this source @ -Spoke with the patient's for history Did you review nursing and triage notes (agree or disagree)? Why? @ -I reviewed and agree with nursing and triage notes Were old charts reviewed (outside hosp., previous admission, EMS record, old EKG, old radiological studies, urgent care reports/EKG's, half-way records)? Report findings @ -No old charts were reviewed Differential Diagnosis (chest pain, altered mental status, abdominal pain women, abdominal pain men, vaginal bleeding, weakness, fever, dyspnea, syncope, headache, dizziness, GI bleed, back pain, seizure, CVA, palpatations, mental health, musculoskeletal)? @ -Differential Abdominal Pain Men: Appendicitis, cholecystitis, diverticulosis, ischemic bowel, pancreatitis, hepatitis, UTI, gastroenteritis, AAA, incarcerated hernia, bowel obstruction, constipation, inflammatory bowel, hepatitis, peptic ulcer disease, splenic infarction, perforated viscus, testicular torsion, this is not meant to be an all-inclusive list EKG interpreted by me (3pts min.). @ -Yes and demonstrates sinus rhythm with a rate of 77. OK interval 149. QRS 117. QTc of 456. No acute ST segment elevations or depressions X-rays interpreted by me (1pt min.). @ -Not done CT interpreted by me (1pt min.). @ -Yes and demonstrates some ascites U/S interpreted by me (1pt. min.). @ -None done What testing was considered but not performed or refused? (CT, X-rays, U/S, labs)? Why? @ -None What meds were considered but not given or refused? Why? @ -None Did you discuss the management of the patient with other professionals (professionals i.e. DrJasmin, PA, [employer] F[employer]ER, lab, RT, psych nurse, social research assistant, waste management engineer, teacher, major gifts officer, registered nurse hh case manager)? Give summary @ -Spoke with Chelsey who is covering for Dr. Clark Was smoking cessation discussed for >3mins.? @ -No Was critical care preformed (if so, how long)? @ -No Were there social determinants of health that impacted care today? How? (Homelessness, low income, unemployed, alcoholism, drug addiction, transportation, low edu. Level, literacy, decrease access to med. care, detention, rehab)? @ -No Was there de-escalation of care discussed even if they declined (Discuss DNR or withdrawal of care, Hospice)? DNR status @ -No What co-morbidities impacted this encounter? (DM, HTN, Smoking, COPD, CAD, Cancer, CVA, ARF, Chemo, Hep., AIDS, mental health diagnosis, sleep apnea, morbid obesity)? @ -Pancreatic cancer Was patient admitted / discharged? Hospital course, mention meds given and route, prescriptions, significant lab abnormalities, going to OR and other pertinent info. @ -Upon arrival patient was seen and evaluated in room 7. Thorough history and physical exam was performed. IV access was established. Laboratory studies are conducted. Patient was given a dose of Lasix. CT was performed which demonstrates a moderate amount of ascites. Informed the patient that I would need IR consultation to determine whether patient qualifies for a paracentesis. IR is available tomorrow. Recommended admission. Spoke with Chelsey who was agreeable to observe the patient overnight. Patient will be admitted with IR consult. He is currently awaiting a bed on the floor in stable condition Undiagnosed new problem with uncertain prognosis? @ -Yes Drug Therapy requiring intensive monitoring for toxicity (Heparin, Nitro, Insulin, Cardizem)? @ -No Were any procedures done? @ -No Diagnosis/symptom? @ -Acute peripheral edema, history of pancreatic cancer Acute, or Chronic, or Acute on Chronic? @ -Acute Uncomplicated (without systemic symptoms) or Complicated (systemic symptoms)? @ -Complicated Side effects of treatment? @ -No Exacerbation, Progression, or Severe Exacerbation? @ -No Poses a threat to life or bodily function? How? (Chest pain, [place], [place], pneumonia, PE, COPD, DKA, ARF, appy, cholecystitis, CVA, Diverticulitis, Homicidal, Suicidal, threat to staff... and all critical care pts) @ -No - Lab Data Result diagrams: 09/05/23 09:07 09/05/23 09:07 Lab Results 09/04/23 09/04/23 09/04/23 Range/Units 15:47 15:47 15:47 WBC 5.2 (3.8-10.6) k/uL RBC 3.68 L (4.30-5.90) m/uL Hgb 10.9 L (13.0-17.5) gm/dL Hct 35.8 L (39.0-53.0) % MCV 97.4 (80.0-100.0) fL MCH 29.6 (25.0-35.0) pg MCHC 30.4 L (31.0-37.0) g/dL RDW 14.3 (11.5-15.5) % Plt Count 129 L (150-450) k/uL MPV 10.3 Neutrophils % 72 % Lymphocytes % 14 % Monocytes % 6 % Eosinophils % 6 % Basophils % 1 % Neutrophils # 3.7 (1.3-7.7) k/uL Lymphocytes # 0.7 L (1.0-4.8) k/uL Monocytes # 0.3 (0-1.0) k/uL Eosinophils # 0.3 (0-0.7) k/uL Basophils # 0.0 (0-0.2) k/uL Hypochromasia Slight PT 10.6 (10.0-12.5) sec INR 1.0 (<1.2) APTT 23.2 (22.0-30.0) sec D-Dimer 3.21 H (<0.60) mg/L FEU Sodium 141 (137-145) mmol/L Potassium 4.0 (3.5-5.1) mmol/L Chloride 115 H (98-107) mmol/L Carbon Dioxide 21 L (22-30) mmol/L Anion Gap 5 mmol/L BUN 31 H (9-20) mg/dL Creatinine 1.78 H (0.66-1.25) mg/dL Est GFR (CKD-EPI)AfAm 44 (>60 ml/min/1.73 sqM) Est GFR (CKD-EPI)NonAf 38 (>60 ml/min/1.73 sqM) Glucose 267 H (74-99) mg/dL POC Glucose (mg/dL) (70-110) mg/dL POC Glu Ocularist ID Calcium 8.3 L (8.4-10.2) mg/dL Magnesium 1.9 (1.6-2.3) mg/dL Total Bilirubin 0.4 (0.2-1.3) mg/dL AST 28 (17-59) U/L ALT 18 (4-49) U/L Alkaline Phosphatase 154 H (38-126) U/L Troponin I (0.000-0.034) ng/mL NT-Pro-B Natriuret Pep 18590 pg/mL Total Protein 6.2 L (6.3-8.2) g/dL Albumin 2.8 L (3.5-5.0) g/dL Lipase (23-300) U/L 09/04/23 09/04/23 09/04/23 Range/Units 15:47 15:47 20:58 WBC (3.8-10.6) k/uL RBC (4.30-5.90) m/uL Hgb (13.0-17.5) gm/dL Hct (39.0-53.0) % MCV (80.0-100.0) fL MCH (25.0-35.0) pg MCHC (31.0-37.0) g/dL RDW (11.5-15.5) % Plt Count (150-450) k/uL MPV Neutrophils % % Lymphocytes % % Monocytes % % Eosinophils % % Basophils % % Neutrophils # (1.3-7.7) k/uL Lymphocytes # (1.0-4.8) k/uL Monocytes # (0-1.0) k/uL Eosinophils # (0-0.7) k/uL Basophils # (0-0.2) k/uL Hypochromasia PT (10.0-12.5) sec INR (<1.2) APTT (22.0-30.0) sec D-Dimer (<0.60) mg/L FEU Sodium (137-145) mmol/L Potassium (3.5-5.1) mmol/L Chloride (98-107) mmol/L Carbon Dioxide (22-30) mmol/L Anion Gap mmol/L BUN (9-20) mg/dL Creatinine (0.66-1.25) mg/dL Est GFR (CKD-EPI)AfAm (>60 ml/min/1.73 sqM) Est GFR (CKD-EPI)NonAf (>60 ml/min/1.73 sqM) Glucose (74-99) mg/dL POC Glucose (mg/dL) (70-110) mg/dL POC Glu Ocularist ID Calcium (8.4-10.2) mg/dL Magnesium (1.6-2.3) mg/dL Total Bilirubin (0.2-1.3) mg/dL AST (17-59) U/L ALT (4-49) U/L Alkaline Phosphatase (38-126) U/L Troponin I 0.054 H* 0.047 H* (0.000-0.034) ng/mL NT-Pro-B Natriuret Pep pg/mL Total Protein (6.3-8.2) g/dL Albumin (3.5-5.0) g/dL Lipase 78 (23-300) U/L 09/05/23 09/05/23 09/05/23 Range/Units 00:24 07:17 09:07 WBC 4.6 (3.8-10.6) k/uL RBC 3.74 L (4.30-5.90) m/uL Hgb 11.3 L (13.0-17.5) gm/dL Hct 37.1 L (39.0-53.0) % MCV 99.1 (80.0-100.0) fL MCH 30.2 (25.0-35.0) pg MCHC 30.4 L (31.0-37.0) g/dL RDW 14.2 (11.5-15.5) % Plt Count 135 L (150-450) k/uL MPV 9.7 Neutrophils % 75 % Lymphocytes % 12 % Monocytes % 5 % Eosinophils % 6 % Basophils % 1 % Neutrophils # 3.5 (1.3-7.7) k/uL Lymphocytes # 0.6 L (1.0-4.8) k/uL Monocytes # 0.2 (0-1.0) k/uL Eosinophils # 0.3 (0-0.7) k/uL Basophils # 0.0 (0-0.2) k/uL Hypochromasia Moderate PT (10.0-12.5) sec INR (<1.2) APTT (22.0-30.0) sec D-Dimer (<0.60) mg/L FEU Sodium (137-145) mmol/L Potassium (3.5-5.1) mmol/L Chloride (98-107) mmol/L Carbon Dioxide (22-30) mmol/L Anion Gap mmol/L BUN (9-20) mg/dL Creatinine (0.66-1.25) mg/dL Est GFR (CKD-EPI)AfAm (>60 ml/min/1.73 sqM) Est GFR (CKD-EPI)NonAf (>60 ml/min/1.73 sqM) Glucose (74-99) mg/dL POC Glucose (mg/dL) 118 H (70-110) mg/dL POC Glu Ocularist ID Binh Marino Calcium (8.4-10.2) mg/dL Magnesium (1.6-2.3) mg/dL Total Bilirubin (0.2-1.3) mg/dL AST (17-59) U/L ALT (4-49) U/L Alkaline Phosphatase (38-126) U/L Troponin I 0.055 H* (0.000-0.034) ng/mL NT-Pro-B Natriuret Pep pg/mL Total Protein (6.3-8.2) g/dL Albumin (3.5-5.0) g/dL Lipase (23-300) U/L 09/05/23 Range/Units 09:07 WBC (3.8-10.6) k/uL RBC (4.30-5.90) m/uL Hgb (13.0-17.5) gm/dL Hct (39.0-53.0) % MCV (80.0-100.0) fL MCH (25.0-35.0) pg MCHC (31.0-37.0) g/dL RDW (11.5-15.5) % Plt Count (150-450) k/uL MPV Neutrophils % % Lymphocytes % % Monocytes % % Eosinophils % % Basophils % % Neutrophils # (1.3-7.7) k/uL Lymphocytes # (1.0-4.8) k/uL Monocytes # (0-1.0) k/uL Eosinophils # (0-0.7) k/uL Basophils # (0-0.2) k/uL Hypochromasia PT (10.0-12.5) sec INR (<1.2) APTT (22.0-30.0) sec D-Dimer (<0.60) mg/L FEU Sodium 140 (137-145) mmol/L Potassium 4.0 (3.5-5.1) mmol/L Chloride 115 H (98-107) mmol/L Carbon Dioxide 22 (22-30) mmol/L Anion Gap 3 mmol/L BUN 27 H (9-20) mg/dL Creatinine 1.56 H (0.66-1.25) mg/dL Est GFR (CKD-EPI)AfAm 51 (>60 ml/min/1.73 sqM) Est GFR (CKD-EPI)NonAf 44 (>60 ml/min/1.73 sqM) Glucose 131 H (74-99) mg/dL POC Glucose (mg/dL) (70-110) mg/dL POC Glu Ocularist ID Calcium 8.6 (8.4-10.2) mg/dL Magnesium (1.6-2.3) mg/dL Total Bilirubin (0.2-1.3) mg/dL AST (17-59) U/L ALT (4-49) U/L Alkaline Phosphatase (38-126) U/L Troponin I (0.000-0.034) ng/mL NT-Pro-B Natriuret Pep pg/mL Total Protein (6.3-8.2) g/dL Albumin (3.5-5.0) g/dL Lipase (23-300) U/L Disposition Clinical Impression: Peripheral edema, Ascites, Pancreatic cancer Disposition: ADMITTED IP TO THIS HOSP Condition: Stable Is patient prescribed a controlled substance at d/c from ED?: No Time of Disposition: 19:44 Decision to Admit Reason: Admit from EC Decision Date: 09/04/23 Decision Time: 19:44
--- NOTE | 2023-09-04 18:24 | CT ---
EXAMINATION TYPE: CT abdomen pelvis wo con CT DLP: 988.6 mGycm, Automated exposure control for dose reduction was used. DATE OF EXAM: 09/04/2023 5:17 PM COMPARISON: CT abdomen pelvis most recent from most recent 05/13/2022. CLINICAL INDICATION:Male, 72 years old with history of abd pain, cancer hx; abdominal distention and bilateral leg swelling x2 weeks TECHNIQUE: Axial CT abdomen pelvis wo con;Sagittal and coronal reformats were created on a separate workstation. Contrast used: mL of , (none if empty) Oral contrast used: without Oral Contrast (none if empty) FINDINGS: LOWER CHEST: Mitral valve annular calcifications. Severe moderate aortic valve consultations. Severe coronary artery cusp patient's. Streaky atelectasis/scarring in the lung bases. ABDOMEN LIVER: Nodular contour to liver. GALLBLADDER AND BILE DUCTS: Gas throughout the biliary system. Stent graft extends through the pancreatic head with tips terminating in the duodenum and common hepa tic/bile duct. PANCREAS: Biliary stent courses through the pancreatic head. Right mild Fat stranding changes around the pancreatic head. SPLEEN: Spleen measures up to 15.9 cm. ADRENAL GLANDS: Unremarkable. KIDNEYS AND URETERS: Left kidney surgically absent. No right renal hydronephrosis. No renal calculi. Right renal cysts some of which are hyperdense. PELVIS BLADDER: Unremarkable REPRODUCTIVE: Unremarkable. ABDOMEN & PELVIS STOMACH AND BOWEL: No evidence of bowel obstruction. Scattered colonic diverticula. PERITONEUM/RETROPERITONEUM: No evidence of pneumoperitoneum. Small amount of free fluid throughout th e abdomen. VASCULATURE: No evidence of aortic aneurysm. Upper abdominal varices are seen in the upper abdomen. MUSCULOSKELETAL: No acute osseous abnormalities LYMPH NODES: No gross evidence for lymphadenopathy. SOFT TISSUE/ABDOMINAL WALL: Unremarkable IMPRESSION: 1. Nodular contour to liver suggestive of cirrhosis with small to moderate ascites and stomach likel y correlate for portal hypertension. Distention may be due to new from prior ascites. 2. Biliary stent graft with pneumobilia. 3. Inflammation changes around the biliary stent across the from the intra-abdominal ascites. Correl ate with serum lipase to rule out a component of pancreatitis. 4. Multiple right-sided renal cysts some of which are hyperdense. Consider complete evaluation with MRI if clinically warranted. 5. Severe coronary atherosclerosis. 6. Severe aortic valve consultations. 7. Mitral valve calcifications.
[2023-09-04] MEDS ORDERED: NALOXONE 0.4 MG/ML 1 ML VIAL IV PRN (19:44)
[2023-09-04] MEDS: FUROSEMIDE 10 MG/ML 10 ML VIAL IV STA (20:35)
[2023-09-04] MEDS ORDERED: ONDANSETRON ODT 4 MG TAB PO PRN (21:16)
[2023-09-04] MEDS ORDERED: ALPRAZolam 0.25 MG TAB PO PRN (21:16)
[2023-09-04] MEDS ORDERED: DEXTROSE 50% SYRINGE 50 ML IVP PRN ×2 (21:16)
[2023-09-05] MEDS: HYDROmorphone 1 MG/ML 1 ML SYRINGE IVP STA (00:44)
[2023-09-05 07:18] LABS: Glucose,Whole Blood 118 mg/dL (70-110)
[2023-09-05] MEDS: PANTOPRAZOLE 40 MG TABLET PO SCH (07:28)
[2023-09-05] MEDS: INSULIN ASPART (NovoLOG) 100 UNIT/ML VIAL SQ SCH (07:28)
[2023-09-05] MEDS: PATIENTS OWN MED PO SCH (08:18)
[2023-09-05] MEDS: FUROSEMIDE 10 MG/ML 4 ML VIAL IV SCH (08:19)
[2023-09-05] MEDS: lisinopriL 20 MG TAB PO SCH (08:19)
[2023-09-05] MEDS: POTASSIUM CHLORIDE ER 10 MEQ TAB.ER.PRT PO SCH (08:19)
[2023-09-05] MEDS: amLODIPine 10 MG TAB PO SCH (08:19)
[2023-09-05 08:22] VITALS: TEMP 98.1
--- NOTE | 2023-09-05 09:21 | US ---
EXAMINATION TYPE: US abdomen limited DATE OF EXAM: 09/05/2023 COMPARISON: Correlation CT 09/04/2023 CLINICAL INDICATION: Male, 72 years old with history of ascites TECHNIQUE: Ultrasound of the 4 abdominal quadrants FINDINGS AND IMPRESSION: Mild ascites scattered throughout the abdomen.
[2023-09-05 09:34] LABS: Basophils % (A) 1 %; Eosinophils # (A) 0.3 k/uL (0-0.7); Eosinophils % (A) 6 %; HCT 37.1 % (39.0-53.0); HGB 11.3 gm/dL (13.0-17.5); Hypochromasia Moderate; Lymphocytes # (A) 0.6 k/uL (1.0-4.8); Lymphocytes % (A) 12 %; MCH 30.2 pg (25.0-35.0); MCHC 30.4 g/dL (31.0-37.0); MCV 99.1 fL (80.0-100.0); Mean Platelet Volume 9.7; Monocytes # (A) 0.2 k/uL (0-1.0); Monocytes % (A) 5 %; Neutrophils # (A) 3.5 k/uL (1.3-7.7); Neutrophils % (A) 75 %; Platelet Count 135 k/uL (150-450); RBC 3.74 m/uL (4.30-5.90); RDW 14.2 % (11.5-15.5); WBC 4.6 k/uL (3.8-10.6)
[2023-09-05 09:53] LABS: African American GFR (CKD) 51 (>60 ml/min/1.73 sqM); Anion Gap 3 mmol/L; Blood Urea Nitrogen 27 mg/dL (9-20); Calcium 8.6 mg/dL (8.4-10.2); Carbon Dioxide 22 mmol/L (22-30); Chloride 115 mmol/L (98-107); Glucose 131 mg/dL (74-99); Non-African American GFR(CKD) 44 (>60 ml/min/1.73 sqM); Sodium 140 mmol/L (137-145)
[2023-09-05 10:44] VITALS: BP 164/91; PULSE 92; RESP 20
[2023-09-05] MEDS ORDERED: HYDROcodone/APAP 10-325MG 1 EACH TAB PO PRN (11:02)
[2023-09-05 12:20] LABS: Glucose,Whole Blood 192 mg/dL (70-110)
== END 2023-09-05 15:30 | disposition home or self-care (01) | DRG 948 ==
LOC: EC 13:19 → 3SCARD 19:49 → OBSVTOIN 09-05 11:30 → 3SCARD 09-05 15:11
PROVIDERS: ADMIT Hospitalist; ATTEND Hospitalist
DX: R18.8 Other ascites (principal); C25.9 Malignant neoplasm of pancreas, unspecified; E78.5 Hyperlipidemia, unspecified; I10 Essential (primary) hypertension; I25.10 Atherosclerotic heart disease of native coronary artery without angina pectoris; E11.9 Type 2 diabetes mellitus without complications; Z87.891 Personal history of nicotine dependence; Z79.4 Long term (current) use of insulin; Z79.899 Other long term (current) drug therapy; Z90.5 Acquired absence of kidney; Z92.21 Personal history of antineoplastic chemotherapy
CPT/HCPCS: 36415; 71046; 74176; 76705; 80048; 80053; 83690; 83735; 83880; 84484; 85025; 85379; 85610; 85730; 93005; 96374; 96375; 96376; 99285